=== PATIENT | female | born 1945 | race Two or more races ===

== ENCOUNTER 2017-11-19 11:11 | Emergency (ER) | payer MEDICARE, OTHER ==
[~2017-11-19] VITALS: Ht 157.5 cm; Wt 75.0 kg
[~2017-11-19 11:11] MED LIST: AMLO-218 PO; ASPI-664 PO; CARV25TA97 PO; CIPR500T4 PO; HYDR-3671 PO; LANT3I SC; METF1000 PO; OMEP20CA9 PO; SIMV20TA2 PO; SITA50TA2 PO
[2017-11-19 11:23] VITALS: Ht 157.5 cm; Wt 75.0 kg
--- NOTE | 2017-11-19 12:57 | ERD ---
ER Documentation Chief Complaint Chief Complaint htn x 1 week,palpitations HPI This is a very pleasant 72-year-old female with known history of hypertension and [id number] diabetes on metformin who takes aspirin on a daily basis. She presents to the emergency department complaining of intermittent hypertension for the past 8 days. She states her blood pressure has reached 180 /101. They saw their primary care physician 7 days ago for the elevated hypertension and Dr. Childers put the patient on 40 mg of Lasix once daily. However her son indicates that after taking the Lasix her blood pressure will take several hours to decrease. The patient states that since the onset of her elevated blood pressure she has been experiencing palpitations. She denies any chest pain or pressure that radiates the neck arm back or jaw. She states she feels very nervous and anxious during the palpitations. She also takes Ativan on an as-needed basis. She had no fevers no shaking or chills. She has no shortness of breath at rest or exertion. She denies any recent travel or prolonged immobilization. Denies a headache or neck pain. ROS All systems reviewed and are negative except as per history of present illness. Medications Home Meds Active Scripts Hydralazine Hcl* (Hydralazine Hcl*) 25 Mg Tab, 25 MG PO Q8, #90 TAB Prov:ELIJAH SOTO MD 03/16/15 Ciprofloxacin Hcl* (Ciprofloxacin Hcl*) 500 Mg Tablet, 500 MG PO BID for 4 Days , TAB Prov:ELIJAH SOTO MD 03/15/15 Reported Medications Sitagliptin* (Januvia*) 50 Mg Tablet, 50 MG PO DAILY, #30 TAB 11/19/17 Insulin Glargine* (Lantus*) 100 Unit/Ml Soln, 15 UNIT SC HS, EA 03/13/15 Carvedilol* (Coreg*) 25 Mg Tablet, 25 MG PO BID, TAB 03/13/15 Aspirin* (Aspirin* EC) 81 Mg Tablet.dr, 81 MG PO DAILY, TAB 03/13/15 Omeprazole* (Prilosec*) 20 Mg Capsule.dr, 20 MG PO DAILY, CAP 03/13/15 Simvastatin (Simvastatin) 20 Mg Tablet, 20 MG PO HS, TAB 03/13/15 Amlodipine Besylate* (Norvasc*) 10 Mg Tablet, 10 MG PO DAILY, TAB 03/13/15 Metformin Hcl* (Metformin Hcl*) 1,000 Mg Tablet, 1000 MG PO BID, TAB 03/13/15 Allergies Allergies: Coded Allergies: Penicillins (Unverified Allergy, Unknown, 11/19/17) PMhx/Soc History of Surgery: Yes (cholecystectomy) Anesthesia Reaction: No Hx Neurological Disorder: No Hx Respiratory Disorders: No Hx Cardiac Disorders: Yes (HTN, hyperlipidemia) Hx Psychiatric Problems: No Hx Miscellaneous Medical Probl: Yes (hiatal hernia, adrenal adenoma) Hx Alcohol Use: No Hx Substance Use: No Hx Tobacco Use: No Physical Exam Vitals Vital Signs Date Time Temp Pulse Resp B/P Pulse Ox O2 Delivery O2 Flow Rate FiO2 11/19/17 14:14 60 17 150/71 100 Room Air 11/19/17 11:23 98.1 72 18 156/85 99 Physical Exam Constitutional:Well-developed. Well-nourished. HEENT:Normocephalic. Atraumatic.Pupils were equal round reactive to light. Moist mucous membranes.No tonsillar exudates. Fundoscopy exam shows sharp optic disks and venous pulsations were present Neck: No nuchal rigidity. No lymphadenopathy. No posterior cervical spine tenderness or step-offs. Respiratory: Not using accessory muscles of respiration.Lungs were clear to auscultation bilaterally. No rhonchi. No rales. No wheezing. Cardiovascular: Regular rate regular rhythm.No murmurs. No rubs were appreciated.S1, S2 normal. Distal pulses are palpable 2+ bilaterally. GI: Abdomen was soft. Nontender. Non Distended. No pulsatile abdominal masses or bruits. No rebound. No guarding. Bowel sounds were present and normal. Muscle skeletal: Full range of motion of both the upper and lower extremities bilaterally.Normal muscle tone.No assymetrical calf tenderness or swelling. Skin: No petechia, no purpura. No lesions on the palms or the soles of the feet. No maculopapular rash. NEURO: Patient was alert, awake, orientated x3.No facial droop. Gait observed and normal with no ataxia.Speech had regular rate and rhythm. No focal neurological deficits. Result Diagram: 11/19/17 1255 11/19/17 1255 Results 24 hrs Laboratory Tests Test 11/19/17 12:55 White Blood Count 10.610^3/ul Red Blood Count 4.4810^6/ul Hemoglobin 12.4g/dl Hematocrit 36.7% Mean Corpuscular Volume 81.9fl Mean Corpuscular Hemoglobin 27.7pg Mean Corpuscular Hemoglobin Concent 33.8g/dl Red Cell Distribution Width 13.5% Platelet Count 61393^3/UL Mean Platelet Volume 9.3fl Neutrophils % 74.5% Lymphocytes % 19.2% Monocytes % 5.0% Eosinophils % 0.7% Basophils % 0.3% Nucleated Red Blood Cells % 0.0/100WBC Neutrophils # 7.910^3/ul Lymphocytes # 2.010^3/ul Monocytes # 0.510^3/ul Eosinophils # 0.110^3/ul Basophils # 0.010^3/ul Nucleated Red Blood Cells # 0.010^3/ul Prothrombin Time 11.8Sec Prothrombin Time Ratio 0.9 INR International Normalized Ratio 0.86 Activated Partial Thromboplast Time 28.0Sec Sodium Level 142mmol/L Potassium Level 4.3mmol/L Chloride Level 102mmol/L Carbon Dioxide Level 25mmol/L Anion Gap 19 Blood Urea Nitrogen 15mg/dl Creatinine 0.68mg/dl Glucose Level 170mg/dl Calcium Level 9.9mg/dl Total Bilirubin 0.2mg/dl Direct Bilirubin 0.00mg/dl Indirect Bilirubin 0.2mg/dl Aspartate Amino Transf (AST/SGOT) 22IU/L Alanine Aminotransferase (ALT/SGPT) 32IU/L Alkaline Phosphatase 57IU/L Creatine Kinase 46IU/L Creatine Kinase Index 0.8 Creatinine Kinase MB (Mass) 0.38ng/ml Troponin I < 0.012ng/ml B-Type Natriuretic Peptide 250PG/ML Total Protein 8.1g/dl Albumin 4.4g/dl Globulin 3.70g/dl Albumin/Globulin Ratio 1.18 Current Medications Medications (Trade) Dose Ordered Sig/[place] Route PRN Reason Start Time Stop Time Status Last Admin Dose Admin Lorazepam (Ativan) 1 mg ONCE ONCE PO 11/19/17 13:00 11/19/17 13:02 [place] Procedures/[facility] This patient presented to the emergency department with severely elevated blood pressure. My differential diagnosis included but was not limited to conditions that could end-organ damage such as acute coronary syndrome, acute pulmonary edema, aortic dissection, subarachnoid hemorrhage, intracerebral hemorrhage, cerebral infarction, withdrawal syndromes from beta blockers, or states of catecholamine excess such as pheochromocytoma or drug intoxication. Ancillary lab work was obtained. There was no elevation in the BUN and creatinine to suggest acute renal failure. Electrolytes were normal. Cardiac enzyme was normal and the 12 lead EKG showed no acute ischemic changes or left ventricular hypertrophy. 12 Lead EKG tracing ordered and reviewed by myself showed: Normal sinus rhythm of 81 bpm and no arrhythmia. WI interval normal. QRS duration normal. No ST segment elevation No ST segment depression. No changes consistent with acute ischemia. I also did feel that there could be an element of anxiety associated with the patient's symptoms. She received Ativan with significant improvement and resolution of her palpitations. Her son was at the bedside and she stated she did feel comfortable being discharged home given that there was no evidence of myocardial ischemia Given that the patient had an absence of cerebral, ocular, cardiac or renal damage the hypertensive urgency was treated with oral agents in the emergency room with improvement of the patient's blood pressure. The patient likely appeared to be complaint with primary care physician and will follow up with their PCP in the next 24-48 hours. They were instructed to return to the emergency department at anytime if there is any worsening of their condition such as development of chest pain or a headache. They were instructed to resume previous medication regimen or initiate a suitable medication regimen under care of the PCP to enable proper monitoring for drug reactions. The patient was also informed on the adverse side effects and adverse drug interactions of the medications prescribed to them by myself. The patient gave informed consent to the prescription of the new medication. Departure Diagnosis: Primary Impression: Hypertensive urgency Additional Impression: Palpitations Condition: CAMACHO Carson Nov 19, 2017 12:57
[2017-11-19] MEDS ORDERED: LORAZEPAM 1 MG TAB PO ONE (13:00)
[2017-11-19 13:17] LABS: BASOPHILS % 0.3 % (0.0-2.0); EOSINOPHILS # 0.1 10^3/ul (0.0-0.5); EOSINOPHILS % 0.7 % (0.0-7.0); HEMATOCRIT 36.7 % (37.0-47.0); HEMOGLOBIN 12.4 g/dl (12.0-16.0); LYMPHOCYTES % 19.2 % (15.0-51.0); MEAN CORPUSCULAR HEMOGLOBIN 27.7 pg (29.0-33.0); MEAN CORPUSCULAR HGB CONC 33.8 g/dl (32.0-37.0); MEAN CORPUSCULAR VOLUME 81.9 fl (82.0-101.0); MEAN PLATELET VOLUME 9.3 fl (7.4-10.4); MONOCYTE # 0.5 10^3/ul (0.3-0.9); NEUTROPHIL # 7.9 10^3/ul (1.6-7.5); NEUTROPHILS % 74.5 % (39.0-77.0); PLATELET COUNT 340 10^3/UL (140-415); RED BLOOD COUNT 4.48 10^6/ul (4.20-5.40); RED CELL DISTRIBUTION WIDTH 13.5 % (11.5-14.5); WHITE BLOOD COUNT 10.6 10^3/ul (4.8-10.8)
[2017-11-19 13:40] LABS: ALANINE AMINOTRANSFERASE 32 IU/L (13-69); ALBUMIN 4.4 g/dl (3.3-4.9); ALBUMIN/GLOBULIN RATIO 1.18; ALKALINE PHOSPHATASE 57 IU/L (42-121); ANION GAP 19 (8-16); ASPARTATE AMINO TRANSFERASE 22 IU/L (15-46); BILIRUBIN,INDIRECT 0.2 mg/dl (0-1.1); BILIRUBIN,TOTAL 0.2 mg/dl (0.2-1.3); BLOOD UREA NITROGEN 15 mg/dl (7-20); CALCIUM 9.9 mg/dl (8.4-10.2); CARBON DIOXIDE 25 mmol/L (21-31); CHLORIDE 102 mmol/L (97-110); CREATINE KINASE 46 IU/L (23-200); CREATININE 0.68 mg/dl (0.44-1.00); GLUCOSE 170 mg/dl (70-220); POTASSIUM 4.3 mmol/L (3.5-5.1); SODIUM 142 mmol/L (135-144); TOTAL PROTEIN 8.1 g/dl (6.1-8.1)
[2017-11-19 13:48] LABS: INR 0.86; PROTIME 11.8 Sec (11.9-14.9); PT RATIO 0.9
[2017-11-19 13:53] LABS: B-TYPE NATRIURETIC PEPTIDE 250 PG/ML (0-125); CK-MB 0.38 ng/ml (0.0-2.4)
[2017-11-19] MEDS ORDERED: SITA50TA2 PO (13:53)
[2017-11-19 14:04] LABS: TROPONIN-I < 0.012 ng/ml (0.00-0.12)
[2017-11-19 15:22] VITALS: BP 146/78; PULSE 80; RESP 17
--- NOTE | 2017-11-20 12:40 | RADRPT ---
PROCEDURE: XR Chest. CLINICAL INDICATION: Abdominal pain. TECHNIQUE: Single frontal view of the chest was obtained COMPARISON: Chest radiograph dated March 13, 2015. FINDINGS: The heart and mediastinum are within normal limits. Aortic calcifications are present. The lungs are clear. There is no pleural effusion or pneumothorax. Degenerative changes of the spine and shoulder joints are present. IMPRESSION: 1. No acute cardiopulmonary disease. RPTAT:AAJJ Jignesh Domínguez Physician Date Time Electronically viewed and signed by Jignesh Domínguez Physician on 11/20/2017 12:40 QL/
== END 2017-11-19 15:32 | disposition home or self-care (01) ==
LOC: E/R 11:11
DX: I16.0 Hypertensive urgency (principal); E11.9 Type 2 diabetes mellitus without complications; F41.9 Anxiety disorder, unspecified; R10.9 Unspecified abdominal pain; Z79.82 Long term (current) use of aspirin; Z79.84 Long term (current) use of oral hypoglycemic drugs; Z79.4 Long term (current) use of insulin
CPT/HCPCS: 71010; 80053; 82550; 82553; 83880; 84484; 85025; 85610; 85730